=== PATIENT | female | born 1960 | race Caucasian/White ===

== ENCOUNTER → 2016-04-15 | Outpatient (CLI) | payer BC ==
[~2016-04-15] MED LIST: ASPI-232 PO; ATOR-24 PO; CHOL100010 PO; CLOP1TAB54 PO; COEN100C15 PO; LRS10 PO; METO25TA56 PO
[2016-04-15 10:07] LABS: BASO % 0.5 %; BASO ABS # 0.02 K/uL (0-0.2); COMPLETE YES; EOS % 4.5 %; HEMATOCRIT 38.7 % (37-47); LYMPH % 20.2 %; LYMPH ABS # 0.76 K/uL (1.2-3.4); MEAN CELL VOLUME 95.6 fL (80-100); MEAN CORPUSCULAR HEMOGLOBIN 31.4 pg (25-34); MEAN CORPUSCULAR HGB CONC 32.8 g/dl (32-36); MEAN PLATELET VOLUME 9.8 fL (7.4-10.4); MONO % 7.7 %; NEUT % 67.1 %; PLATELET COUNT 172 K/uL (130-400); RED BLOOD COUNT 4.05 M/uL (4.2-5.4); WHITE BLOOD COUNT 3.77 K/uL (4.8-10.8)
[2016-04-15 10:18] LABS: ALT/SGPT 24 U/L (12-78); BLOOD UREA NITROGEN 15 mg/dl (7-18); CALCIUM 9.2 mg/dl (8.5-10.1); CARBON DIOXIDE 30 mmol/L (21-32); CHLORIDE 103 mmol/L (98-107); CHOLESTEROL 132 mg/dl (0-200); CREATININE 0.87 mg/dl (0.60-1.20); GLUCOSE 95 mg/dl (70-99); POTASSIUM 3.9 mmol/L (3.5-5.1); SODIUM 140 mmol/L (136-145); TRIGLYCERIDES 145 mg/dl (0-150); VERY LOW DENSITY LIPOPROT CALC 29 mg/dl
[2016-04-15 10:21] LABS: ALB/GLOB RATIO 1.4 (0.9-2); ALKALINE PHOSPHATASE 86 U/L (45-117); AST/SGOT 14 U/L (15-37); CHOLESTEROL/HDL RATIO 3.1; HDL CHOLESTEROL 42 mg/dl; LDL CHOLESTEROL CALCULATED 61 mg/dl
== END | disposition home or self-care (01) ==
LOC: C.LAB1850 08:58
PROVIDERS: ATTEND Internal Medicine Interventional Cardiology
DX: I25.10 Atherosclerotic heart disease of native coronary artery without angina pectoris (principal); I10 Essential (primary) hypertension; Z98.61 Coronary angioplasty status

== ENCOUNTER → 2017-03-14 | Outpatient (CLI) | payer BC ==
[2017-03-14 14:25] LABS: BASO % 0.4 %; BASO ABS # 0.02 K/uL (0-0.2); EOS % 2.4 %; EOS ABS # 0.11 K/uL (0-0.5); HEMATOCRIT 40.4 % (37-47); IG# 0.02 K/uL (0.00-0.02); LYMPH % 23.3 %; LYMPH ABS # 1.07 K/uL (1.2-3.4); MEAN CELL VOLUME 96.9 fL (80-100); MEAN CORPUSCULAR HEMOGLOBIN 31.2 pg (25-34); MEAN CORPUSCULAR HGB CONC 32.2 g/dl (32-36); MEAN PLATELET VOLUME 10.2 fL (7.4-10.4); MONO % 7.8 %; MONO ABS # 0.36 K/uL (0.11-0.59); NEUT % 65.7 %; NEUT ABS # 3.01 K/uL (1.4-6.5); PLATELET COUNT 165 K/uL (130-400); RED CELL DISTRIBUTION WIDTH CV 13.5 % (11.5-14.5); RED CELL DISTRIBUTION WIDTH SD 47.5 fL (36.4-46.3); WHITE BLOOD COUNT 4.59 K/uL (4.8-10.8)
[2017-03-14 15:29] LABS: ALBUMIN 4.1 gm/dl (3.4-5.0); ALT/SGPT 31 U/L (12-78); BLOOD UREA NITROGEN 17 mg/dl (7-18); CALCIUM 9.9 mg/dl (8.5-10.1); CARBON DIOXIDE 30 mmol/L (21-32); CHOLESTEROL 118 mg/dl (0-200); CREATININE 0.77 mg/dl (0.60-1.20); GLUCOSE 94 mg/dl (70-99); POTASSIUM 4.1 mmol/L (3.5-5.1); SODIUM 140 mmol/L (136-145)
[2017-03-14 15:38] LABS: ALKALINE PHOSPHATASE 75 U/L (45-117); AST/SGOT 18 U/L (15-37); LDL CHOLESTEROL CALCULATED 51 mg/dl; TOTAL PROTEIN 7.5 gm/dl (6.4-8.2)
== END | disposition home or self-care (01) ==
LOC: C.LABBC 11:01
PROVIDERS: ATTEND Nurse Practitioner Family
DX: R07.9 Chest pain, unspecified (principal)

== ENCOUNTER → 2017-04-14 | Outpatient (CLI) | payer BC ==
--- NOTE | 2017-04-14 15:53 | DIAGNOSTIC IMAGING REPORT ---
R HIP UNILATERAL 2 VIEWS CLINICAL HISTORY: M25.551 Right hip [id number] COMPARISON: None. DISCUSSION: There are moderate osteoarthritic changes with marked superior joint space narrowing. There are femoral head osteophytes. There are no acute fractures. IMPRESSION: Moderately advanced osteoarthritic change. No acute fractures Electronically signed by: Tiburcio Renee M.D. 04/14/2017 3:52 PM Dictated Date/Time: 04/14/2017 3:51 PM
== END | disposition home or self-care (01) ==
LOC: C.RADBC 15:36
PROVIDERS: ATTEND Nurse Practitioner Family
DX: M25.551 Pain in right hip (principal)

== ENCOUNTER → 2017-05-03 | Outpatient (CLI) | payer BC ==
--- NOTE | 2017-05-03 10:22 | DIAGNOSTIC IMAGING REPORT ---
LUMBAR SPINE 5 VIEWS HISTORY: LOW BACK PAIN COMPARISON: Lumbar spine 10/09/2015. FINDINGS: There is no fracture. No subluxation. Moderate to severe disc space narrowing at L4-L5 with endplate osteophytes and endplate sclerosis. There is also mild disc space narrowing at L2-L3 and L3-L4 with small endplate osteophytes. Moderate facet osteoarthritis within the lower lumbar spine. The sacrum appears intact. Straightening of the lumbar spine. Moderate right hip osteoarthritis. IMPRESSION: No fracture or subluxation within the lumbar spine. No significant change in the degenerative changes most pronounced at the L4-L5 level. Electronically signed by: Daljit Recio M.D. 05/03/2017 10:20 AM Dictated Date/Time: 05/03/2017 10:18 AM
== END | disposition home or self-care (01) ==
LOC: C.RDSM 09:50
PROVIDERS: ATTEND Internal Medicine
DX: M54.5 Low back pain (principal)

== ENCOUNTER → 2017-05-10 | Outpatient (CLI) | payer BC | END | disposition home or self-care (01) | LOC: C.LABSPEC 16:42 | PROVIDERS: ATTEND Physician Assistant | DX: L29.8 Other pruritus (principal) ==

== ENCOUNTER → 2017-06-15 | Outpatient (CLI) | payer BC | END | disposition home or self-care (01) | LOC: C.PAPS 12:00 | PROVIDERS: ATTEND Physician Assistant | DX: Z01.419 Encounter for gynecological examination (general) (routine) without abnormal findings (principal) ==

== ENCOUNTER → 2017-06-15 | Outpatient (CLI) | payer BC | END | disposition home or self-care (01) | LOC: C.LABSPEC 11:09 | PROVIDERS: ATTEND Physician Assistant | DX: Z01.419 Encounter for gynecological examination (general) (routine) without abnormal findings (principal); L29.8 Other pruritus ==

== ENCOUNTER → 2017-07-06 | Day surgery (SDC) | payer BC ==
[2017-06-27 16:25] VITALS: Ht 165.1 cm; Wt 81.8 kg
[~2017-07-06] VITALS: Ht 165.1 cm; Wt 81.8 kg
[~2017-07-06] MED LIST changes: +CHOL1000 PO; -CHOL100010 PO; +IOPAMIDOL INJ 61% 15 ML VIAL ONE; +LIDOCAINE HCL 1% MPF 5 ML VIAL ONE; -LRS10 PO; -METO25TA56 PO; +POLY335019 PO; +PSYL0.524 PO; +SODIUM CHLORIDE 0.9% INJ 10 ML VIAL ONE; +TPRSR/25 PO
--- NOTE | 2017-07-06 14:24 | History & Physical Bridge - [place] ---
H&P Re-Evaluation Bridge Note: I have examined the patient, reviewed the History & Physical and in the interval since the performance of the History & Physical I have noted the following changes of clinical significance: No changes noted
--- NOTE | 2017-07-06 14:46 | [facility] Post Operative Brief Note ---
Immediate Operative Summary Operative Date July 06, 2017. 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 Lina SEO Harp Maker Surgeon(s) NONE Estimated Blood Loss 0 Findings Consistent with Post-Op Diagnosis Specimens NA Drains None Anesthesia Type Local Complication(s) none Disposition Disposition:
[2017-07-06 14:48] VITALS: PULSE 80; TEMP 36.7
--- NOTE | 2017-07-06 14:48 | Discharge Instructions ---
Discharge Instructions Date of Service July 06, 2017. Visit Reason for Visit: Lumboscaral Spondylolisthesis, Radiculopathy Discharge Discharge Diagnosis / Problem: right leg pain Discharge Goals Goal(s): Decrease discomfort, Improve function Medications Stopped Medications Name(s): see anticoag comment Activity Recommendations Activity Limitations: resume your previous activity Anesthesia . Post Anesthesia Instructions: If you have had General Anesthesia or IV Sedation: * Do not drive today. * Resume driving when surgeon permits. * Do not make important decisions or sign legal documents today. * Call surgeon for: 1. Temperature elevations greater than 101 degrees F. 2. Uncontrollable pain. 3. Excessive bleeding. 4. Persistent nausea and vomiting. 5. Medication intolerance (nausea, vomiting or rash). * For nausea and vomiting use only clear liquids such as: tea, soda, bouillon until nausea subsides, then gradually increase diet as tolerated. * If you have any concerns or questions, call your surgeon's office. If physician is unavailable and it is an emergency, call 911 or go to the nearest emergency room. . Diet Recommendations Recommended Home Diet: resume previous diet Procedures Procedures Performed: LUMBAR EPIDURAL STEROID INJECTION Pending Studies Studies pending at discharge: no Medical Emergencies . Who to Call and When: Medical Emergencies: If at any time you feel your situation is an emergency, please call 911 immediately. . Non-Emergent Contact Non-Emergency issues call your: Specialist . . "Provider Documentation" section prepared by Julio C Eaton. .
[2017-07-06 15:06] VITALS: BP 130/82; O2SAT 97
--- NOTE | 2017-07-06 20:05 | OPERATIVE REPORT ---
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 POSTOPERATIVE DIAGNOSIS: L4-L5 anterior listhesis with a right L4 radiculopathy. PROCEDURE: Right paramedian L4-L5 interlaminar epidural steroid injection under fluoroscopic guidance. INDICATIONS: The patient is a 57-year-old white female who presents today for an epidural steroid injection. She has classic right L4 radicular pain that is emanating from the spine and she has a known anterior listhesis at this level at L4-L5. PHYSICAL EXAMINATION: GENERAL: Pleasant female, seated comfortably, in no apparent distress. MUSCULOSKELETAL: The patient has some tenderness to palpation across the lower lumbar spine into the right sciatic notch. No focal weakness, heightened sensation in the right L4 dermatomal distribution. CONSENT: Verbal and written consent was obtained from the patient. Risks and benefits were reviewed. Risks include, but are not limited to epidural abscess, epidural hematoma, allergic reaction, dural puncture. The patient wishes to proceed. PROCEDURE IN DETAIL: The patient was taken back to the special procedures room of [facility]. She was maintained in a prone position. Backside was cleansed with Betadine x3 and a dry sterile dressing was applied. Fluoroscope was used to identify the L4-L5 intralaminar space. Overlying skin was anesthetized with 3 mL of lidocaine 1% with a 25-gauge 1.5-inch needle. A 22-gauge 3.5-inch Tuohy needle was then directed down towards the intralaminar space. It was advanced under lateral fluoroscopic guidance. Loss of resistance was noted at a depth of just under 6 cm. Isovue-300 contrast 1 mL was injected, which demonstrated epidural uptake pattern. She then underwent injection after negative aspiration of 40 mg of Depo-Medrol and 4 mL of preservative free sodium chloride. Injection was well tolerated. DISPOSITION: 1. The patient was taken out into the discharge recovery area where she will be discharged home once discharge criteria are met. 2. Follow up in the [facility] office in 4 weeks' time. I attest to the content of the Intraoperative Record and any orders documented therein. Any exception s are noted below.
== END | disposition home or self-care (01) ==
LOC: X.SURG 13:53
PROVIDERS: ATTEND Physical Medicine & Rehabilitation
DX: M43.16 Spondylolisthesis, lumbar region (principal); Z79.899 Other long term (current) drug therapy; Z79.82 Long term (current) use of aspirin

== ENCOUNTER 2024-02-01 15:53 | Observation (INO) ==
--- NOTE | 2024-02-01 16:33 | Emergency Department Note ---
Impression & Plan TIA (transient ischemic attack), Leukopenia, Double vision, Dizziness ED Provider Note NAME: OPAL MOYA AGE: 64 SEX: F : 1960 ARRIVES VIA: Walk-In INFORMANT: Patient ED PROVIDER(S): Edmond Lockwood DO CHIEF COMPLAINT: Dizziness, blurry vision/double vision HPI: Patient is a 64-year-old female who presents to the ER for double vision that started this morning around 8 AM. It lasted for a minute. This resolved. Patient had double vision and blurry vision and this has been coming going throughout the day. Currently has none now. Denies any headache or loss of vision. No chest pain or shortness of breath. No belly pain, nausea, vomiting, or diarrhea. No dysuria, urgency, or frequency. No other exacerbating or remitting factors. ADDITIONAL HISTORY OBTAINED: Per HPI Chronic Medical/Social Conditions Affecting Care: Per HPI PAST MEDICAL HISTORY:See Below PAST SURGICAL HISTORY:See Below FAMILY HISTORY:See Below SOCIAL HISTORY:See Below HOME MEDICATIONS:See Below ALLERGIES:See Below VITALS:See Below PHYSICAL EXAMINATION: GENERAL: Sitting up in bed, alert, well appearing, well nourished, no distress, non-toxic EYE EXAM: normal conjunctiva. PERRL and EOM's intact. OROPHARYNX: no exudate, no erythema, lips, buccal mucosa, and tongue normal and mucous membranes are moist NECK: supple, no nuchal rigidity, no adenopathy, non-tender LUNGS: Clear to auscultation. Normal chest wall mechanics HEART: no murmurs, S1 normal and S2 normal ABDOMEN: abdomen soft, non-tender, normo-active bowel sounds, no masses, no rebound or guarding. UPPER EXTREMITIES: upper extremities are grossly normal. LOWER EXTREMITIES: No pitting edema. NEURO EXAM: Normal sensorium, cranial nerves II-XII intact, normal speech, no weakness of arms, no weakness of legs. No drift. Finger to nose intact. Gross sensation intact. MEDICAL DECISION MAKING: Patient is a 64-year-old female who presents to the ER for the above-stated complaint. IV was established and blood work was obtained. Labs show leukopenia 3.9 thousand. No significant anemia. Mild thrombocytopenia at 122. BMP along with LFTs bilirubin and troponin was negative. Lipase was normal. CT angios of the head and neck showed a questionable occlusion. Patient has no focal deficit at this time. NIH is 0. Symptoms tactically started around 8 AM. She is not a candidate for TNK. Did discuss with [facility] and they reviewed the angios of the head and requested angios of the neck. These were reordered and were done. I rediscussed them with [facility] and they recommended admission. Discussed case with Dr. Edwards for further evaluation management treatment. Consults/Care Managements Discussions: Per [facility] Triage Nursing notes reviewed. Limited review of prior medical records performed Vital Signs: reviewed and remarkable for no significant abnormalities Differential diagnosis: Differential Diagnosis includes but is not limited to headache, tension headache, cluster headache, migraine, subarachnoid hemorrhage, meningitis, mass, central venous thrombus, concussion, trauma and epidural/subdural hemorrhage. ER treatment provided: See below Diagnostics interpreted by me include EKG and cardiac monitoring as listed below: -Cardiac Monitoring: An order was placed for continuous cardiac monitoring. The monitor shows a rate of 82 with sinus rhythm. -ECG: Sinus rhythm rate 80 Normal axis No PVCs QTc 429 -Laboratory studies:Interpreted by me as stated above in MDM and shown below. Imaging studies: Xrays: As interpreted by me: Portable AP upright 1 view of the chest shows no focal infiltrate CTs show: CT angios of the head and neck as described above Procedures:none Critical Care: None Past Med/Surg History Problem List (Updated 02/01/24 @ 21:11 by Edmond Lockwood DO) Dizziness (Acute) Double vision (Acute) Leukopenia (Acute) TIA (transient ischemic attack) (Acute) Lumbar degenerative disc disease Obesity Mild sleep apnea Renal cyst (~2012) pt unaware Crohn disease Recurrent UTI Sleep apnea Antiplatelet or antithrombotic long-term use Lumbar back pain with radiculopathy affecting lower extremity Dry eye Hypersomnia Insomnia Organic periodic limb movement disorder Vertigo Endometriosis Chronic constipation Sensorineural hearing loss of both ears Allergic rhinitis Hypertension (Chronic) CAD (coronary artery disease) Dyslipidemia (Chronic) Asthma (Chronic) no longer uses inhaler Hemorrhoids Status post insertion of drug-eluting stent into left anterior descending (LAD) artery [address] Mayers for this / metoprolol GERD (gastroesophageal reflux disease) Medical History Postural lightheadedness Chronic folliculitis Rectal bleeding Osteoarthritis Pulmonary nodules (~2013) Hydradenitis Spinal stenosis Surgical History S/P epidural steroid injection History of total right hip arthroplasty History of mandibular surgery Nausea and vomiting after administration of anesthetic agent H/O unilateral oophorectomy History of surgery History of dilatation and curettage History of laparoscopy History of colonoscopy History of endoscopic sinus surgery History of placement of stent in LAD coronary artery Family History Mother Heart disease Hypertension Renal artery stenosis Brother Diabetes Kidney disease Lymphoma Lung cancer Father Diabetes Prostate cancer Stroke Dementia Unknown Abdominal aortic aneurysm Sister Lymphoma Grandmother (Paternal) Stroke Uncle Aortic aneurysm Other Family history of reaction to anesthesia No family history of adverse response to anesthesia No family history of bleeding disorder Denies family history of Ovarian cancer Myocardial infarction Breast cancer Colorectal cancer Social History Smoking Status: Never smoker Second Hand Exposure: No; Do You Dip or Chew Tobacco: No; Hx Alcohol Use: No Hx Substance Use: No Preferred Language: Chinese Communication Ability: Effective Visual Impairment: Limited Hearing Ability: Normal [employer] Department Chair Required: No Beliefs That Will Affect Care: None marital status: Current Living Situation: Family Current Living Situation Comment: LIVES WITH SON current occupational status: retired How many Children do You have: 2 Feels Safe at Home: Yes Childhood Exposure to Second-Hand Smoke: Yes Diet: regular Diet Comment: Regular caffeine: Yes during the past year weight has: remained stable Dental Care, Regularly: Yes Physical Activity Frequency: 5-6 Times per Week Seatbelt Use: always Sunscreen Use: Yes Assistive Devices: Glasses Allergies Allergies Allergy/AdvReac Type Severity Reaction Status Date / Time cefuroxime Allergy Severe THROAT Verified 01/31/24 13:02 CLOSES adhesive tape Allergy Intermediate Hives Verified 01/31/24 13:02 bacitracin Allergy Intermediate Rash Verified 01/31/24 13:02 [From Neosporin ([id number])] mupirocin Allergy Intermediate Hives Verified 01/31/24 13:02 neomycin Allergy Intermediate Hives Verified 01/31/24 13:02 [From Neosporin ([id number])] polymyxin B Allergy Intermediate Hives Verified 01/31/24 13:02 [From Neosporin ([id number])] Penicillins Allergy Unknown A CHILD Verified 01/31/24 13:02 - UNK ciprofloxacin [From Cipro] AdvReac Intermediate nausea/vomi Verified 01/31/24 13:02 ting/diarrh ea Sulfa (Sulfonamide AdvReac Intermediate nausea/vomi Verified 01/31/24 13:02 Antibiotics) ting/diarrh ea azithromycin AdvReac Unknown contraindicted Verified 01/31/24 13:02 due to heart stent Home Meds Home Medications Medication Instructions Recorded Confirmed aspirin 81 mg tablet,delayed 81 mg PO QAM 01/08/19 02/01/24 release (Adult Aspirin Regimen) cholecalciferol (vitamin D3) 50 50 mcg PO QAM 01/08/19 02/01/24 mcg (2,000 unit) capsule Lactobacillus acidophilus 10 10,000 mmu cells PO QAM 04/19/21 02/01/24 billion cell capsule coQ10 (ubiquinol) 200 mg capsule 1 tab PO HS 03/15/23 02/01/24 conjugated estrogens 0.625 mg/gram 1 applic vaginal DAILY PRN Unknown 07/27/23 02/01/24 vaginal cream (Premarin) d-mannose 500 mg capsule 500 mg PO DAILY 11/01/23 02/01/24 Previous Rx's Medication Instructions Recorded clindamycin phosphate 1 % topical 1 applic topical DAILY PRN SKIN 02/14/23 gel IRRITATION #60 grams metoprolol succinate 25 mg 12.5 mg (1/2 x 25 mg) PO QAM 04/29/23 tablet,extended release 24 hr hypertension #90 tabs atorvastatin 80 mg tablet 80 mg PO HS #90 tabs 11/01/23 hydrocortisone 2.5 % topical cream 1 applic NC DAILY PRN hemorrhoids 12/07/23 with perineal applicator #30 grams (Proctozone-HC) Results & Data (ED) Vital Signs Vital Signs - 24 hr 02/01/24 16:04 02/01/24 16:21 02/01/24 16:32 Temperature 36.6 C Temperature Source Temporal Artery Scan Pulse Rate 90 80 Pulse Rate [Apical] 69 Respiratory Rate 16 16 Respiratory Effort / Characteristics Non-Labored Spontaneous Respiratory Depth Normal Respiratory Pattern Regular Blood Pressure 153/84 H Blood Pressure [Left Arm] 157/88 H Blood Pressure Mean 107 Blood Pressure Mean [Left Arm] 111 Pulse Oximetry 98 96 Oxygen Delivery Method Room Air Room Air Sepsis Recent Fever Within 48 Hours No Sepsis New/Unexplained Change in Mental Status N/A Sepsis Action Taken by Nursing No Action Required 02/01/24 16:32 02/01/24 17:04 02/01/24 19:08 Temperature Temperature Source Pulse Rate Pulse Rate [Apical] 67 66 Respiratory Rate 18 18 Respiratory Effort / Characteristics Respiratory Depth Respiratory Pattern Blood Pressure Blood Pressure [Left Arm] 147/84 H 150/88 H Blood Pressure Mean Blood Pressure Mean [Left Arm] 105 108 Pulse Oximetry 96 96 98 Oxygen Delivery Method Room Air Room Air Sepsis Recent Fever Within 48 Hours Sepsis New/Unexplained Change in Mental Status Sepsis Action Taken by Nursing 02/01/24 20:12 02/01/24 20:48 02/01/24 21:37 Temperature Temperature Source Pulse Rate 77 Pulse Rate [Apical] 79 68 Respiratory Rate 16 15 Respiratory Effort / Characteristics Respiratory Depth Respiratory Pattern Blood Pressure Blood Pressure [Left Arm] 174/89 H 139/86 Blood Pressure Mean Blood Pressure Mean [Left Arm] 117 103 Pulse Oximetry 99 98 Oxygen Delivery Method Sepsis Recent Fever Within 48 Hours Sepsis New/Unexplained Change in Mental Status Sepsis Action Taken by Nursing Laboratory Data 02/01/24 16:29 02/01/24 16:29 Lab Results 02/01/24 Range/Units 16:29 WBC 3.90 L (4.8-10.8) K/ul RBC 4.23 (4.20-5.40) M/uL Hgb 13.2 (12.0-16.0) g/dl Hct 39.9 (37.0-47.0) % MCV 94.3 (80.0-100.0) fL MCH 31.2 (25.0-34.0) pg MCHC 33.1 (32.0-36.0) g/dL RDW Std Deviation 44.9 (36.4-46.3) fL RDW Coeff of Valentina 13.0 (11.5-14.5) % Plt Count 122 L (130-400) K/uL MPV 9.6 (9.4-12.4) fL Immature Gran % (Auto) 0.5 % Neut % (Auto) 69.5 % Lymph % (Auto) 21.0 % [place] % (Auto) 7.2 % Eos % (Auto) 1.3 % Baso % (Auto) 0.5 % Neut # (Auto) 2.71 (1.40-6.50) K/uL Lymph # (Auto) 0.82 L (1.20-3.40) K/uL [place] # (Auto) 0.28 (0.11-0.59) K/uL Eos # (Auto) 0.05 (0.00-0.50) K/uL Baso # (Auto) 0.02 (0.00-0.20) K/uL Immature Gran # (Auto) 0.02 (0.01-0.20) K/uL Sodium 141 (136-145) mmol/L Potassium 3.9 (3.5-5.1) mmol/L Chloride 106 (98-107) mmol/L Carbon Dioxide 28 (21-32) mmol/L Anion Gap 7 (3-11) BUN 14 (6-23) mg/dl Creatinine 0.78 (0.6-1.2) mg/dl Est Cr Clr Drug Dosing 75.7 ml/min eGFR 83.72 BUN/Creatinine Ratio 17.9 (10-20) Glucose 105 H (70-99(Fasting)) mg/dl Calcium 9.9 (8.6-10.3) mg/dl Total Bilirubin 0.9 (0.2-1.0) mg/dl AST 17 (13-39) U/L ALT 16 (7-52) U/L Alkaline Phosphatase 72 (34-104) U/L Troponin I High Sens 3.4 (0-14) pg/ml Total Protein 7.2 (6.0-8.3) gm/dl Albumin 4.7 (3.4-5.0) gm/dl Globulin 2.5 (2.5-4.0) gm/dl Albumin/Globulin Ratio 1.9 (0.9-2) Lipase 25 (11-82) U/L Administered Medications Discontinued Medications Sodium Chloride (Nss) 500 mls @ 999 mls/hr IV .Q31M ONE Stop: 02/01/24 20:58 Last Admin: 02/01/24 21:24 Dose: 999 mls/hr Documented By: WAQAR Ioversol (Optiray 320 125ml) 119 ml IV ONCE ONE Stop: 02/01/24 18:42 Last Admin: 02/01/24 18:42 Dose: 119 ml Documented By: SERGE Ioversol (Optiray 320 125ml) 116 ml IV ONCE ONE Stop: 02/01/24 20:42 Last Admin: 02/01/24 20:41 Dose: 116 ml Documented By: SERGE Imaging Data Radiologist's Impression: Chest X-Ray 02/01/24 16:29 EXAM: Radiograph of the Chest 1 View INDICATION: Chest pain. TECHNIQUE: Frontal view of the chest. COMPARISON: 04/23/2023 and 01/30/2023 FINDINGS: Lungs and pleural spaces: No consolidation or pulmonary edema. No pleural effusion or pneumothorax. Heart: Shape and configuration within normal limits allowing for technique. Mediastinum: Probable small hiatal hernia. Bones/joints: No fracture, erosion or dislocation. Soft tissues: No abnormality noted. No radiopaque foreign body noted. Upper abdomen: No abnormality noted. IMPRESSION: Probable small hiatal hernia. Otherwise negative. ACT 112: Negative or not required by law. Electronically signed by Akila Mcleod 02-01-2024 4:55 PM Head CTA 02/01/24 16:29 EXAM: CT Angiography Head Without and With Intravenous Contrast INDICATION: Blurry and double vision. TECHNIQUE: Axial computed tomographic angiography images of the head without and with intravenous contrast. Sagittal and coronal reformatted images were created and reviewed. This CT exam was performed using one or more of the following dose reduction techniques: automated exposure control, adjustment of the mA and/or kV according to patient size, and/or use of iterative reconstruction technique. MIP reconstructed images were created and reviewed. CONTRAST: 119 ml of Optiray 320 was administered intravenously. COMPARISON: 03/15/2023 FINDINGS: VASCULATURE: Right internal carotid artery: Mild calcific plaque noted. No acute change noted. Intracranial segment is patent with no significant stenosis. No aneurysm. Right anterior cerebral artery: No abnormality noted. No occlusion or significant stenosis. No aneurysm. Right middle cerebral artery: No abnormality noted. No occlusion or significant stenosis. No aneurysm. Right posterior cerebral artery: No abnormality noted. No occlusion or significant stenosis. No aneurysm. Right vertebral artery: No significant abnormality noted. Left internal carotid artery: Short segment occlusion of the cavernous segment with reconstitution. No aneurysm. Left anterior cerebral artery: Hypoplastic A1. No occlusion or significant stenosis. No aneurysm. Left middle cerebral artery: No abnormality noted. No occlusion or significant stenosis. No aneurysm. Left posterior cerebral artery: No abnormality noted. No occlusion or significant stenosis. No aneurysm. Left vertebral artery: No significant abnormality noted. Basilar artery: No abnormality noted. No occlusion or significant stenosis. No aneurysm. HEAD: Brain and extra-axial spaces: Stable left posterior parietal approximately 6 mm meningioma. No surrounding edema. No territorial infarct. No hemorrhage or extra-axial fluid collection. No hydrocephalus. Bones/joints: No acute fracture. Soft tissues: No abnormality noted. Sinuses: No significant abnormality noted. No acute sinusitis. Mastoid air cells: No significant abnormality noted. No mastoid effusion. IMPRESSION: 1. The left internal carotid artery is relatively small with a probable very short focal fluid segment in the cavernous portion with reconstitution via posterior collaterals. 2. 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 Impression new. ACT 112: Negative or not required by law. Electronically signed by Akila Mcleod 02-01-2024 7:02 PM Neck CTA 02/01/24 20:27 CR Exam(s): CTA NECK With Contrast IV Amt: 116 ml optiray 320 EXAM: CT Angiography Neck With Intravenous Contrast CLINICAL HISTORY: Reason for exam: cva. TECHNIQUE: Routine carotid CT angiography protocol was performed with intravenous contrast. NASCET criteria using the distal ICAs for comparison were used for evaluation of stenoses. CTDI is 13.22 mGy and DLP is 379.81 mGy-cm. Automated exposure control was utilized for the study. A dose lowering technique was utilized adhering to the principles of ALARA. MIP reconstructed images were created and reviewed. CONTRAST: Patient received 116 ml optiray 320 of IV contrast COMPARISON: None. FINDINGS: VASCULATURE: Right common carotid artery: Unremarkable. No occlusion or significant stenosis. No dissection. Right carotid bulb: Atheromatous calcified plaques with >50% luminal narrowing (series 302 image 19). Right internal carotid artery: Unremarkable. Extracranial segment is patent with no occlusion or significant stenosis. No dissection. Right external carotid artery: Focal calcified plaque with 50-70% proximal luminal narrowing. No occlusion. Right vertebral artery: Unremarkable. No occlusion or significant stenosis. No dissection. Diffusely diminutive left common, internal carotid and external carotid arteries. Left common carotid artery: No occlusion or significant stenosis. No dissection. Left internal carotid artery: Extracranial segment is patent with no occlusion or significant stenosis. No dissection. Left external carotid artery: No occlusion. Left vertebral artery: Unremarkable. No occlusion or significant stenosis. No dissection. NECK: Bones/joints: No acute fracture. Straightening of normal cervical lordosis. No segmental malalignment. Mild/moderate spondylosis. Soft tissues: Unremarkable. Lung apices: Pleural-parenchymal scarring. . CAROTID STENOSIS REFERENCE USING NASCET CRITERIA: % ICA stenosis = (1 - narrowest ICA diameter/diameter of distal cervical ICA) x 100. Mild - <50% stenosis. Moderate - 50-69% stenosis. Severe - 70-94% stenosis. Near occlusion - 95-99% stenosis. Occluded - 100% stenosis. IMPRESSION: Calcified atherosclerotic plaques of the right carotid bulb/proximal right external carotid artery with 50-70% luminal narrowing as mentioned above. Diffusely diminutive left common, internal carotid and external carotid arteries. Otherwise unremarkable CTA neck exam. . Communications: Call Doctor Stroke Electronically signed by: Micky Suresh MD, DABR 02/01/24 21:31 PM Discharge Plan Visit Data Chief Complaint: Hypertension Stated Complaint: BP HIGH, DBLE VISION, DIZZY, ED Provider: Edmond Lockwood Discharge Problem: TIA (transient ischemic attack), Leukopenia, Double vision, Dizziness Forms Stand Alone Forms: My [facility] [place] [employer] Prescriptions Prescriptions: No Action clindamycin phosphate 1 % gel 1 applic topical DAILY PRN (Reason: SKIN IRRITATION ) Qty: 60 0RF aspirin [Adult Aspirin Regimen] 81 mg tablet,delayed release (DR/EC) 81 mg PO QAM cholecalciferol (vitamin D3) 50 mcg (2,000 unit) capsule 50 mcg PO QAM metoprolol succinate 25 mg tablet extended release 24 hr 12.5 mg PO QAM Qty: 90 3RF Rx Instructions: pt to take blood pressure prior to taking medication, only takes med based on sliding scale 1/2 tablet 105-110 whole tablet 111 or above d-mannose 500 mg capsule 500 mg PO DAILY atorvastatin 80 mg tablet 80 mg PO HS Qty: 90 3RF Premarin 0.625 mg/gram cream 1 applic vaginal DAILY PRN (Reason: Unknown) hydrocortisone [Proctozone-HC] 2.5 % cream with perineal applicator 1 applic NC DAILY PRN (Reason: hemorrhoids) Qty: 30 1RF Lactobacillus acidophilus 10 billion cell Capsule 10,000 mmu cells PO QAM coQ10 (ubiquinol) 200 mg Capsule 1 tab PO HS Referrals Referrals: Marcelina Gao DO [Primary Care Provider] - Discharge Problem: Leukopenia Qualifiers: Leukopenia type: unspecified Qualified Code(s): D72.819 - Decreased white blood cell count, unspecified
[2024-02-01 17:10] LABS: Basophils # (auto) 0.02 K/uL (0.00-0.20); Basophils % (auto) 0.5 %; Eosinophils # (auto) 0.05 K/uL (0.00-0.50); Eosinophils % (auto) 1.3 %; Hematocrit (blood only) 39.9 % (37.0-47.0); Hemoglobin 13.2 g/dl (12.0-16.0); Immature Granulocytes # (auto) 0.02 K/uL (0.01-0.20); Immature Granulocytes % (auto) 0.5 %; Lymphocytes # (auto) 0.82 K/uL (1.20-3.40); Mean Corpuscular Hemoglobin 31.2 pg (25.0-34.0); Mean Corpuscular Hgb Conc 33.1 g/dL (32.0-36.0); Mean Corpuscular Volume 94.3 fL (80.0-100.0); Mean Platelet Volume 9.6 fL (9.4-12.4); Monocytes # (auto) 0.28 K/uL (0.11-0.59); Monocytes % (auto) 7.2 %; Neutrophils # (auto) 2.71 K/uL (1.40-6.50); Neutrophils % (auto) 69.5 %; Platelet Count 122 K/uL (130-400); RDW Standard Deviation 44.9 fL (36.4-46.3); Red Blood Count 4.23 M/uL (4.20-5.40)
[2024-02-01 17:15] LABS: Albumin Globulin Ratio 1.9 (0.9-2); Albumin Level 4.7 gm/dl (3.4-5.0); BUN Creatinine Ratio 17.9 (10-20); Bilirubin,Total 0.9 mg/dl (0.2-1.0); Calcium 9.9 mg/dl (8.6-10.3); Creatinine Clr Calc Pharmacy 75.7 ml/min; Globulin 2.5 gm/dl (2.5-4.0); Potassium 3.9 mmol/L (3.5-5.1); Total Protein 7.2 gm/dl (6.0-8.3)
--- NOTE | 2024-02-01 17:16 | XRay Report ---
EXAM: Radiograph of the Chest 1 View INDICATION: Chest pain. TECHNIQUE: Frontal view of the chest. COMPARISON: 04/23/2023 and 01/30/2023 FINDINGS: Lungs and pleural spaces: No consolidation or pulmonary edema. No pleural effusion or pneumothorax. Heart: Shape and configuration within normal limits allowing for technique. Mediastinum: Probable small hiatal hernia. Bones/joints: No fracture, erosion or dislocation. Soft tissues: No abnormality noted. No radiopaque foreign body noted. Upper abdomen: No abnormality noted. IMPRESSION: Probable small hiatal hernia. Otherwise negative. ACT 112: Negative or not required by law. Electronically signed by Akila Mcleod 02-01-2024 4:55 PM
[2024-02-01 17:20] LABS: Troponin I High Sensitivity 3.4 pg/ml (0-14)
[2024-02-01] MEDS: OPTIRAY 320 125ml IV ONE ×2 (18:42→20:41)
--- NOTE | 2024-02-01 19:03 | CT Scan Report ---
EXAM: CT Angiography Head Without and With Intravenous Contrast INDICATION: Blurry and double vision. TECHNIQUE: Axial computed tomographic angiography images of the head without and with intravenous contrast. Sagittal and coronal reformatted images were created and reviewed. This CT exam was performed using one or more of the following dose reduction techniques: automated exposure control, adjustment of the mA and/or kV according to patient size, and/or use of iterative reconstruction technique. MIP reconstructed images were created and reviewed. CONTRAST: 119 ml of Optiray 320 was administered intravenously. COMPARISON: 03/15/2023 FINDINGS: VASCULATURE: Right internal carotid artery: Mild calcific plaque noted. No acute change noted. Intracranial segment is patent with no significant stenosis. No aneurysm. Right anterior cerebral artery: No abnormality noted. No occlusion or significant stenosis. No aneurysm. Right middle cerebral artery: No abnormality noted. No occlusion or significant stenosis. No aneurysm. Right posterior cerebral artery: No abnormality noted. No occlusion or significant stenosis. No aneurysm. Right vertebral artery: No significant abnormality noted. Left internal carotid artery: Short segment occlusion of the cavernous segment with reconstitution. No aneurysm. Left anterior cerebral artery: Hypoplastic A1. No occlusion or significant stenosis. No aneurysm. Left middle cerebral artery: No abnormality noted. No occlusion or significant stenosis. No aneurysm. Left posterior cerebral artery: No abnormality noted. No occlusion or significant stenosis. No aneurysm. Left vertebral artery: No significant abnormality noted. Basilar artery: No abnormality noted. No occlusion or significant stenosis. No aneurysm. HEAD: Brain and extra-axial spaces: Stable left posterior parietal approximately 6 mm meningioma. No surrounding edema. No territorial infarct. No hemorrhage or extra-axial fluid collection. No hydrocephalus. Bones/joints: No acute fracture. Soft tissues: No abnormality noted. Sinuses: No significant abnormality noted. No acute sinusitis. Mastoid air cells: No significant abnormality noted. No mastoid effusion. IMPRESSION: 1. The left internal carotid artery is relatively small with a probable very short focal fluid segment in the cavernous portion with reconstitution via posterior collaterals. 2. 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 Impression new. ACT 112: Negative or not required by law. Electronically signed by Akila Mcleod 02-01-2024 7:02 PM
[2024-02-01] MEDS: SODIUM CHLORIDE 0.9% 500 ML IV ONE (21:24)
--- NOTE | 2024-02-01 21:32 | CT Scan Report ---
Exam(s): CTA NECK With Contrast IV Amt: 116 ml optiray 320 EXAM: CT Angiography Neck With Intravenous Contrast CLINICAL HISTORY: Reason for exam: cva. TECHNIQUE: Routine carotid CT angiography protocol was performed with intravenous contrast. NASCET criteria using the distal ICAs for comparison were used for evaluation of stenoses. CTDI is 13.22 mGy and DLP is 379.81 mGy-cm. Automated exposure control was utilized for the study. A dose lowering technique was utilized adhering to the principles of ALARA. MIP reconstructed images were created and reviewed. CONTRAST: Patient received 116 ml optiray 320 of IV contrast COMPARISON: None. FINDINGS: VASCULATURE: Right common carotid artery: Unremarkable. No occlusion or significant stenosis. No dissection. Right carotid bulb: Atheromatous calcified plaques with >50% luminal narrowing (series 302 image 19). Right internal carotid artery: Unremarkable. Extracranial segment is patent with no occlusion or significant stenosis. No dissection. Right external carotid artery: Focal calcified plaque with 50-70% proximal luminal narrowing. No occlusion. Right vertebral artery: Unremarkable. No occlusion or significant stenosis. No dissection. Diffusely diminutive left common, internal carotid and external carotid arteries. Left common carotid artery: No occlusion or significant stenosis. No dissection. Left internal carotid artery: Extracranial segment is patent with no occlusion or significant stenosis. No dissection. Left external carotid artery: No occlusion. Left vertebral artery: Unremarkable. No occlusion or significant stenosis. No dissection. NECK: Bones/joints: No acute fracture. Straightening of normal cervical lordosis. No segmental malalignment. Mild/moderate spondylosis. Soft tissues: Unremarkable. Lung apices: Pleural-parenchymal scarring. . CAROTID STENOSIS REFERENCE USING NASCET CRITERIA: % ICA stenosis = (1 - narrowest ICA diameter/diameter of distal cervical ICA) x 100. Mild - <50% stenosis. Moderate - 50-69% stenosis. Severe - 70-94% stenosis. Near occlusion - 95-99% stenosis. Occluded - 100% stenosis. IMPRESSION: Calcified atherosclerotic plaques of the right carotid bulb/proximal right external carotid artery with 50-70% luminal narrowing as mentioned above. Diffusely diminutive left common, internal carotid and external carotid arteries. Otherwise unremarkable CTA neck exam. . Communications: Call Doctor Stroke Electronically signed by: Micky Suresh MD, DABR 02/01/24 21:31 PM
--- NOTE | 2024-02-01 21:42 | History & Physical Report ---
Date of Service February 01, 2024 Assessment & Plan (1) Double vision: (2) Fatigue: (3) Antiplatelet or antithrombotic long-term use: (4) CAD (coronary artery disease): (5) Status post insertion of drug-eluting stent into left anterior descending (LAD) artery: (6) Crohn disease: (7) Somatic dysfunction NEC: Plan Resolved diplopia/fatigue/strokelike symptoms- CT head with stable 6 mm left posterior parietal meningioma CTA head: Left ICA relatively small with a probable very short focal fluid segment in the cavernous portion with reconstitution via posterior collaterals. 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 CTA neck with right carotid bulb and proximal right ECA 50 to 70% stenosis MRI of brain without contrast shows no acute intracranial abnormality. A few punctate subcortical hyperintense foci in the bilateral frontoparietal lobes are likely nonspecific or due to chronic microvascular ischemic disease Tick studies ordered: Lyme test negative, babesiosis and anaplasmosis smear negative with antibodies pending, ehrlichiosis pending Continue aspirin 81 mg daily Symptoms have completely resolved Stroke without thrombolytic order set, consulting speech/PT/OT/neurology Order hemoglobin A1c and fasting lipid panel CAD/hypertension/history of LILIANE to LAD- Most recent stress echo on 12/29/2023 Troponin normal at 3.4, will recheck in the a.m. The patient will be admitted to telemetry for serial cardiac enzymes, serial EKG's, cardiac rhythm monitoring and a 2-D echocardiogram with Dopplers. Thrombocytopenia- Platelets 122, with recent range 129-146 Continue to follow serially, continue aspirin. Any additional antiplatelet agents such as clopidogrel will be up to neurology Multilevel somatic dysfunction- Patient has had a complete connective tissue disease workup which has been nega tive, and will not be repeated History of Present Illness Chief Complaint: The patient presents to the emergency department with complaint of a couple days of generally feeling unwell, with primarily fatigue at symptom, then upon awakening this morning noted her first episode of double vision, that has occurred intermittently throughout the day. She describes double vision as occurring when she has her head looking straight but lifts her eyes up into the left, and might notice a doubling of lines in the corner where the rios come together. She has no focal weakness of arms or legs, she has no other visual acuity anomaly or of the any other position of double vision. She denies any beating of her visual field suggestive of nystagmus Primary Care Provider: Marcelina Gao DO The patient is a 64-year-old female with a past medical history including lumbar degenerative disc disease with intermittent lower extremity radiculopathy, obesity, mild sleep apnea, Crohn's disease, hypersomnia, PLMD, SNHL bilaterally, CAD, hypertension, history of LAD LILIANE, and GERD. The patient presents to the emergency department with symptoms of mild generalized fatigue and unwellness over the past couple days, and then notation of double vision when looking up into the left into extreme field of gaze. She has no focal weakness in the arms or legs, she has no difficulty with speech or swallowing. She denies any recent travels or sick exposures. Allergies Allergy/AdvReac Type Severity Reaction Status Date / Time cefuroxime Allergy Severe THROAT Verified 01/31/24 13:02 CLOSES adhesive tape Allergy Intermediate Hives Verified 01/31/24 13:02 bacitracin Allergy Intermediate Rash Verified 01/31/24 13:02 [From Neosporin ([id number])] mupirocin Allergy Intermediate Hives Verified 01/31/24 13:02 neomycin Allergy Intermediate Hives Verified 01/31/24 13:02 [From Neosporin ([id number])] polymyxin B Allergy Intermediate Hives Verified 01/31/24 13:02 [From Neosporin ([id number])] Penicillins Allergy Unknown A CHILD Verified 01/31/24 13:02 - UNK ciprofloxacin [From Cipro] AdvReac Intermediate nausea/vomi Verified 01/31/24 13:02 ting/diarrh ea Sulfa (Sulfonamide AdvReac Intermediate nausea/vomi Verified 01/31/24 13:02 Antibiotics) ting/diarrh ea azithromycin AdvReac Unknown contraindicted Verified 01/31/24 13:02 due to heart stent Home Medications Medication Instructions Recorded Confirmed Type aspirin 81 mg tablet,delayed 81 mg PO QAM 01/08/19 02/01/24 History release (Adult Aspirin Regimen) cholecalciferol (vitamin D3) 50 50 mcg PO QAM 01/08/19 02/01/24 History mcg (2,000 unit) capsule Lactobacillus acidophilus 10 10,000 mmu cells PO QAM 04/19/21 02/01/24 History billion cell capsule clindamycin phosphate 1 % topical 1 applic topical DAILY PRN SKIN 02/14/23 02/01/24 Rx gel IRRITATION #60 grams coQ10 (ubiquinol) 200 mg capsule 1 tab PO HS 03/15/23 02/01/24 History metoprolol succinate 25 mg 12.5 mg (1/2 x 25 mg) PO QAM 04/29/23 02/01/24 Rx tablet,extended release 24 hr hypertension #90 tabs conjugated estrogens 0.625 mg/gram 1 applic vaginal DAILY PRN Unknown 07/27/23 02/01/24 History vaginal cream (Premarin) atorvastatin 80 mg tablet 80 mg PO HS #90 tabs 11/01/23 02/01/24 Rx d-mannose 500 mg capsule 500 mg PO DAILY 11/01/23 02/01/24 History hydrocortisone 2.5 % topical cream 1 applic MA DAILY PRN hemorrhoids 12/07/23 02/01/24 Rx with perineal applicator #30 grams (Proctozone-HC) Past Med/Surg History Problem List (Updated 02/02/24 @ 02:46 by Won Jain MD) Somatic dysfunction NEC Dizziness (Acute) Double vision (Acute) Leukopenia (Acute) TIA (transient ischemic attack) (Acute) Lumbar degenerative disc disease Obesity Mild sleep apnea Renal cyst (~2012) pt unaware Crohn disease Recurrent UTI Sleep apnea Antiplatelet or antithrombotic long-term use Lumbar back pain with radiculopathy affecting lower extremity Dry eye Hypersomnia Insomnia Organic periodic limb movement disorder Vertigo Endometriosis Chronic constipation Sensorineural hearing loss of both ears Allergic rhinitis Hypertension (Chronic) CAD (coronary artery disease) Dyslipidemia (Chronic) Asthma (Chronic) no longer uses inhaler Hemorrhoids Status post insertion of drug-eluting stent into left anterior descending (LAD) artery [address] Mayers for this / metoprolol GERD (gastroesophageal reflux disease) Medical History Postural lightheadedness Chronic folliculitis Rectal bleeding Osteoarthritis Pulmonary nodules (~2013) Hydradenitis Spinal stenosis Surgical History S/P epidural steroid injection History of total right hip arthroplasty History of mandibular surgery Nausea and vomiting after administration of anesthetic agent H/O unilateral oophorectomy History of surgery History of dilatation and curettage History of laparoscopy History of colonoscopy History of endoscopic sinus surgery History of placement of stent in LAD coronary artery Family History Mother Heart disease Hypertension Renal artery stenosis Brother Diabetes Kidney disease Lymphoma Lung cancer Father Diabetes Prostate cancer Stroke Dementia Unknown Abdominal aortic aneurysm Sister Lymphoma Grandmother (Paternal) Stroke Uncle Aortic aneurysm Other Family history of reaction to anesthesia No family history of adverse response to anesthesia No family history of bleeding disorder Denies family history of Ovarian cancer Myocardial infarction Breast cancer Colorectal cancer Social History Smoking Status: Never smoker Second Hand Exposure: No; Do You Dip or Chew Tobacco: No; Hx Alcohol Use: No Hx Substance Use: No Preferred Language: Syrian Communication Ability: Effective Visual Impairment: Limited Hearing Ability: Normal Edi Architect Required: No Beliefs That Will Affect Care: None marital status: Current Living Situation: Family Current Living Situation Comment: , lives with son current occupational status: retired How many Children do You have: 2 Feels Safe at Home: Yes Childhood Exposure to Second-Hand Smoke: Yes Diet: regular Diet Comment: Regular caffeine: Yes during the past year weight has: remained stable Dental Care, Regularly: Yes Physical Activity Frequency: 5-6 Times per Week Seatbelt Use: always Sunscreen Use: Yes Assistive Devices: None Review of Systems Review of Systems: The patient denies chest pain, palpitations, shortness of breath, dyspnea on exertion, cough, lower extremity swelling, sore throat, fevers, chills, sweats, nausea, vomiting, diarrhea , constipation, abdominal pain, pelvic pain, blood in urine or stool, dysuria, urinary frequency or urgency, lightheadedness, dizziness, headache, memory loss, loss of consciousness, rash, abnormal bruising or bleeding, imbalance, focal or generalized weakness, numbness or tingling in arms or legs, generalized arthralgias or myalgias, back or neck pain, or night sweats. The review of systems is otherwise negative other than for that already noted above, and at least 10 systems have been reviewed. Physical Exam Physical Exam: The patient is awake, alert and oriented 3, well developed and well nourished, normocephalic and atraumatic, lying in bed and in no acute distress. HEENT--PERRL, EOMI, mucous membranes and oropharynx mildly dry. No Jayden Jana pupil Ophthalmoscopic exam--normal Neck--supple. No JVD. No bruits. Thyroid normal, trachea midline, no adenopathy. Heart--normal S1 and S2. No murmurs, rubs or gallops. Lungs--clear bilaterally, no respiratory distress, no accessory muscle use. Abdomen--normal bowel sounds and soft. Nontender. Nondistended, no hernias or masses, no organomegaly. Extremities--no cyanosis or clubbing. No edema. There are good distal pulses b/l. Dermatologic--normal skin turgor, normal color, no abnormal lymph nodes, no rash. Neurologic--cranial nerves II through XII grossly intact. Unable to elicit diplopia, visual change, or nystagmus in reported area of potential double vision Rheumatologic--normal range of motion. Psychiatric--normal affect. Results & Data Results & Data Vital Signs (Past 12 Hours) Vital Signs Temp Pulse Pulse Resp BP BP Pulse Ox 02/01/24 21:37 68 15 139/86 98 02/01/24 20:48 77 02/01/24 20:12 79 16 174/89 H 99 02/01/24 19:08 66 18 150/88 H 98 02/01/24 17:04 67 18 147/84 H 96 02/01/24 16:32 96 02/01/24 16:32 69 16 157/88 H 96 02/01/24 16:21 80 02/01/24 16:04 36.6 C 90 16 153/84 H 98 O2 Del Method 02/01/24 21:37 02/01/24 20:48 02/01/24 20:12 02/01/24 19:08 Room Air 02/01/24 17:04 02/01/24 16:32 Room Air 02/01/24 16:32 Room Air 02/01/24 16:21 02/01/24 16:04 Room Air Laboratory Results Laboratory Results WBC 3.90 K/ul (4.8-10.8) L 02/01/24 16:29 RBC 4.23 M/uL (4.20-5.40) 02/01/24 16: Hgb 13.2 g/dl (12.0-16.0) 02/01/24 16: Hct 39.9 % (37.0-47.0) 02/01/24 16: MCV 94.3 fL (80.0-100.0) 02/01/24 16: MCH 31.2 pg (25.0-34.0) 02/01/24 16: MCHC 33.1 g/dL (32.0-36.0) 02/01/24 16: RDW Std Deviation 44.9 fL (36.4-46.3) 02/01/24 16: RDW Coeff of Valentina 13.0 % (11.5-14.5) 02/01/24 16: Plt Count 122 K/uL (130-400) L 02/01/24 16: MPV 9.6 fL (9.4-12.4) 02/01/24 16: Immature Gran % (Auto) 0.5 % 02/01/24 16: Neut % (Auto) 69.5 % 02/01/24 16: Lymph % (Auto) 21.0 % 02/01/24 16: [place] % (Auto) 7.2 % 02/01/24 16: Eos % (Auto) 1.3 % 02/01/24 16: Baso % (Auto) 0.5 % 02/01/24 16: Neut # (Auto) 2.71 K/uL (1.40-6.50) 02/01/24 16: Lymph # (Auto) 0.82 K/uL (1.20-3.40) L 02/01/24 16: [place] # (Auto) 0.28 K/uL (0.11-0.59) 02/01/24 16: Eos # (Auto) 0.05 K/uL (0.00-0.50) 02/01/24 16: Baso # (Auto) 0.02 K/uL (0.00-0.20) 02/01/24 16: Immature Gran # (Auto) 0.02 K/uL (0.01-0.20) 02/01/24 16: Sodium 141 mmol/L (136-145) 02/01/24 16:29 Potassium 3.9 mmol/L (3.5-5.1) 02/01/24 16:29 Chloride 106 mmol/L (98-107) 02/01/24 16:29 Carbon Dioxide 28 mmol/L (21-32) 02/01/24 16:29 Anion Gap 7 (3-11) 02/01/24 16:29 BUN 14 mg/dl (6-23) 02/01/24 16:29 Creatinine 0.78 mg/dl (0.6-1.2) 02/01/24 16:29 Est Cr Clr Drug Dosing 75.7 ml/min 02/01/24 16:29 eGFR 83.72 02/01/24 16:29 BUN/Creatinine Ratio 17.9 (10-20) 02/01/24 16:29 Glucose 105 mg/dl (70-99(Fasting)) H 02/01/24 16:29 Calcium 9.9 mg/dl (8.6-10.3) 02/01/24 16:29 Total Bilirubin 0.9 mg/dl (0.2-1.0) 02/01/24 16:29 AST 17 U/L (13-39) 02/01/24 16:29 ALT 16 U/L (7-52) 02/01/24 16:29 Alkaline Phosphatase 72 U/L (34-104) 02/01/24 16:29 Troponin I High Sens 3.4 pg/ml (0-14) 02/01/24 16:29 Total Protein 7.2 gm/dl (6.0-8.3) 02/01/24 16:29 Albumin 4.7 gm/dl (3.4-5.0) 02/01/24 16:29 Globulin 2.5 gm/dl (2.5-4.0) 02/01/24 16:29 Albumin/Globulin Ratio 1.9 (0.9-2) 02/01/24 16:29 Lipase 25 U/L (11-82) 02/01/24 16:29 Anaplasma Smear See Comment 02/01/24 16:29 Babesia Smear See Comment 02/01/24 16:29 Lyme Disease Screen Negative (Negative) 02/01/24 16:29 Impressions Chest X-Ray 02/01/24 16:29 EXAM: Radiograph of the Chest 1 View INDICATION: Chest pain. TECHNIQUE: Frontal view of the chest. COMPARISON: 04/23/2023 and 01/30/2023 FINDINGS: Lungs and pleural spaces: No consolidation or pulmonary edema. No pleural effusion or pneumothorax. Heart: Shape and configuration within normal limits allowing for technique. Mediastinum: Probable small hiatal hernia. Bones/joints: No fracture, erosion or dislocation. Soft tissues: No abnormality noted. No radiopaque foreign body noted. Upper abdomen: No abnormality noted. IMPRESSION: Probable small hiatal hernia. Otherwise negative. ACT 112: Negative or not required by law. Electronically signed by Akila Mcleod 02-01-2024 4:55 PM Head CTA 02/01/24 16:29 EXAM: CT Angiography Head Without and With Intravenous Contrast INDICATION: Blurry and double vision. TECHNIQUE: Axial computed tomographic angiography images of the head without and with intravenous contrast. Sagittal and coronal reformatted images were created and reviewed. This CT exam was performed using one or more of the following dose reduction techniques: automated exposure control, adjustment of the mA and/or kV according to patient size, and/or use of iterative reconstruction technique. MIP reconstructed images were created and reviewed. CONTRAST: 119 ml of Optiray 320 was administered intravenously. COMPARISON: 03/15/2023 FINDINGS: VASCULATURE: Right internal carotid artery: Mild calcific plaque noted. No acute change noted. Intracranial segment is patent with no significant stenosis. No aneurysm. Right anterior cerebral artery: No abnormality noted. No occlusion or significant stenosis. No aneurysm. Right middle cerebral artery: No abnormality noted. No occlusion or significant stenosis. No aneurysm. Right posterior cerebral artery: No abnormality noted. No occlusion or significant stenosis. No aneurysm. Right vertebral artery: No significant abnormality noted. Left internal carotid artery: Short segment occlusion of the cavernous segment with reconstitution. No aneurysm. Left anterior cerebral artery: Hypoplastic A1. No occlusion or significant stenosis. No aneurysm. Left middle cerebral artery: No abnormality noted. No occlusion or significant stenosis. No aneurysm. Left posterior cerebral artery: No abnormality noted. No occlusion or significant stenosis. No aneurysm. Left vertebral artery: No significant abnormality noted. Basilar artery: No abnormality noted. No occlusion or significant stenosis. No aneurysm. HEAD: Brain and extra-axial spaces: Stable left posterior parietal approximately 6 mm meningioma. No surrounding edema. No territorial infarct. No hemorrhage or extra-axial fluid collection. No hydrocephalus. Bones/joints: No acute fracture. Soft tissues: No abnormality noted. Sinuses: No significant abnormality noted. No acute sinusitis. Mastoid air cells: No significant abnormality noted. No mastoid effusion. IMPRESSION: 1. The left internal carotid artery is relatively small with a probable very short focal fluid segment in the cavernous portion with reconstitution via posterior collaterals. 2. 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 Impression new. ACT 112: Negative or not required by law. Electronically signed by Akila Mcleod 02-01-2024 7:02 PM Neck CTA 02/01/24 20:27 CR Exam(s): CTA NECK With Contrast IV Amt: 116 ml optiray 320 EXAM: CT Angiography Neck With Intravenous Contrast CLINICAL HISTORY: Reason for exam: cva. TECHNIQUE: Routine carotid CT angiography protocol was performed with intravenous contrast. NASCET criteria using the distal ICAs for comparison were used for evaluation of stenoses. CTDI is 13.22 mGy and DLP is 379.81 mGy-cm. Automated exposure control was utilized for the study. A dose lowering technique was utilized adhering to the principles of ALARA. MIP reconstructed images were created and reviewed. CONTRAST: Patient received 116 ml optiray 320 of IV contrast COMPARISON: None. FINDINGS: VASCULATURE: Right common carotid artery: Unremarkable. No occlusion or significant stenosis. No dissection. Right carotid bulb: Atheromatous calcified plaques with >50% luminal narrowing (series 302 image 19). Right internal carotid artery: Unremarkable. Extracranial segment is patent with no occlusion or significant stenosis. No dissection. Right external carotid artery: Focal calcified plaque with 50-70% proximal luminal narrowing. No occlusion. Right vertebral artery: Unremarkable. No occlusion or significant stenosis. No dissection. Diffusely diminutive left common, internal carotid and external carotid arteries. Left common carotid artery: No occlusion or significant stenosis. No dissection. Left internal carotid artery: Extracranial segment is patent with no occlusion or significant stenosis. No dissection. Left external carotid artery: No occlusion. Left vertebral artery: Unremarkable. No occlusion or significant stenosis. No dissection. NECK: Bones/joints: No acute fracture. Straightening of normal cervical lordosis. No segmental malalignment. Mild/moderate spondylosis. Soft tissues: Unremarkable. Lung apices: Pleural-parenchymal scarring. . CAROTID STENOSIS REFERENCE USING NASCET CRITERIA: % ICA stenosis = (1 - narrowest ICA diameter/diameter of distal cervical ICA) x 100. Mild - <50% stenosis. Moderate - 50-69% stenosis. Severe - 70-94% stenosis. Near occlusion - 95-99% stenosis. Occluded - 100% stenosis. IMPRESSION: Calcified atherosclerotic plaques of the right carotid bulb/proximal right external carotid artery with 50-70% luminal narrowing as mentioned above. Diffusely diminutive left common, internal carotid and external carotid arteries. Otherwise unremarkable CTA neck exam. . Communications: Call Doctor Stroke Electronically signed by: Micky Suresh MD, DABR 02/01/24 21:31 PM Brain MRI 02/01/24 21:40 EXAM: MR brain wo con CLINICAL HISTORY: FATIGUE. DIZZINESS. DOUBLE VISION WHEN LOOKING TO THE LEFT. FELT OFF ALL DAY. SYMPTOMS RESOLVED NOW. TECHNIQUE: MRI of the brain was performed without contrast with multiplanar sequences obtained. COMPARISON: Comparison is made with prior imaging studies dated 03/15/2023 CT. FINDINGS: Brain Parenchyma: No evidence of acute infarction or hemorrhage. Normal jones-white matter differentiation. No mass lesions or focal cortical abnormalities were identified. Few punctate subcortical hyperintense T2/FLAIR foci are identified in the frontoparietal lobes bilaterally likely nonspecific or due to chronic microvascular ischemic changes Ventricles and Sulci: Normal size and configuration of the lateral ventricles, third ventricle, and fourth ventricle. No evidence of hydrocephalus or ventriculomegaly. Sylvian fissures, sulci, and cisterns are within normal limits. Posterior Fossa: Cerebellum and brainstem appear normal without evidence of mass lesions or signal abnormalities. Cranial Nerves: Normal course and appearance of cranial nerves identified. Vessels: No evidence of vascular malformations or aneurysms. Intracranial arteries and veins appear normal without evidence of stenosis or occlusion. Orbits and Skull Base: Orbits and skull base structures are normal without evidence of abnormalities. Nasal septum is mildly deviated towards the right side. Minimal fluid is identified in the left mastoid air cells. IMPRESSION: 1. No acute intracranial abnormality was identified. 2. Few punctate subcortical T2/FLAIR hyperintense foci in bilateral frontoparietal lobes are likely nonspecific or due to chronic microvascular ischemic changes. 3. No significant interval change. Electronically signed by Joleen Bender 02-02-2024 12:46 AM Code Status & VTE Plan Code Status Full code VTE Prophylaxis Plan VTE Prophylaxis will be ordered: Yes PG Care Time/CCT Total # of Minutes Spent Total Time Spent with Patient: Total time spent is greater than 50% in coordination of care (as documented) at patient's floor/unit and/or counseling patient: Coding Level of Care Code 27810 INT INP/OBS CARE 3/75MIN Diagnoses Double vision H53.2 Fatigue R53.83 Antiplatelet or antithrombotic long-term use Z79.02 CAD (coronary artery disease) I25.10 Status post insertion of drug-eluting stent into left anterior descending (LAD) artery Z95.5 Crohn disease K50.90 Somatic dysfunction NEC M99.09
[2024-02-01] MEDS ORDERED: ACETAMINOPHEN 325 MG TAB PO PRN (22:44)
[2024-02-01] MEDS ORDERED: PHARMACIST DISCHARGE MED REC CONSULT PRN (22:44)
--- NOTE | 2024-02-02 00:47 | Magnetic Resonance Report ---
EXAM: MR brain wo con CLINICAL HISTORY: FATIGUE. DIZZINESS. DOUBLE VISION WHEN LOOKING TO THE LEFT. FELT OFF ALL DAY. SYMPTOMS RESOLVED NOW. TECHNIQUE: MRI of the brain was performed without contrast with multiplanar sequences obtained. COMPARISON: Comparison is made with prior imaging studies dated 03/15/2023 CT. FINDINGS: Brain Parenchyma: No evidence of acute infarction or hemorrhage. Normal jones-white matter differentiation. No mass lesions or focal cortical abnormalities were identified. Few punctate subcortical hyperintense T2/FLAIR foci are identified in the frontoparietal lobes bilaterally likely nonspecific or due to chronic microvascular ischemic changes Ventricles and Sulci: Normal size and configuration of the lateral ventricles, third ventricle, and fourth ventricle. No evidence of hydrocephalus or ventriculomegaly. Sylvian fissures, sulci, and cisterns are within normal limits. Posterior Fossa: Cerebellum and brainstem appear normal without evidence of mass lesions or signal abnormalities. Cranial Nerves: Normal course and appearance of cranial nerves identified. Vessels: No evidence of vascular malformations or aneurysms. Intracranial arteries and veins appear normal without evidence of stenosis or occlusion. Orbits and Skull Base: Orbits and skull base structures are normal without evidence of abnormalities. Nasal septum is mildly deviated towards the right side. Minimal fluid is identified in the left mastoid air cells. IMPRESSION: 1. No acute intracranial abnormality was identified. 2. Few punctate subcortical T2/FLAIR hyperintense foci in bilateral frontoparietal lobes are likely nonspecific or due to chronic microvascular ischemic changes. 3. No significant interval change. Electronically signed by Joleen Bender 02-02-2024 12:46 AM
[2024-02-02 05:51] LABS: Basophils # (auto) 0.02 K/uL (0.00-0.20); Basophils % (auto) 0.6 %; Eosinophils # (auto) 0.06 K/uL (0.00-0.50); Eosinophils % (auto) 1.7 %; Hematocrit (blood only) 38.1 % (37.0-47.0); Hemoglobin 12.5 g/dl (12.0-16.0); Immature Granulocytes # (auto) 0.01 K/uL (0.01-0.20); Immature Granulocytes % (auto) 0.3 %; Lymphocytes # (auto) 0.86 K/uL (1.20-3.40); Lymphocytes % (auto) 24.5 %; Mean Corpuscular Hemoglobin 31.1 pg (25.0-34.0); Mean Corpuscular Hgb Conc 32.8 g/dL (32.0-36.0); Mean Corpuscular Volume 94.8 fL (80.0-100.0); Mean Platelet Volume 9.2 fL (9.4-12.4); Monocytes # (auto) 0.32 K/uL (0.11-0.59); Monocytes % (auto) 9.1 %; Neutrophils # (auto) 2.24 K/uL (1.40-6.50); Neutrophils % (auto) 63.8 %; Platelet Count 106 K/uL (130-400); RDW Coefficient of Variation 13.1 % (11.5-14.5); RDW Standard Deviation 45.1 fL (36.4-46.3); Red Blood Count 4.02 M/uL (4.20-5.40); White Blood Count 3.51 K/ul (4.8-10.8)
[2024-02-02 06:06] LABS: Albumin Level 4.3 gm/dl (3.4-5.0); BUN Creatinine Ratio 15.7 (10-20); Chol HDL Ratio 3.1 (0-5); Creatinine Clr Calc Pharmacy 85.6 ml/min; Magnesium 2.2 mg/dl (1.7-2.4); Phosphorus 3.7 mg/dl (2.5-4.9); Potassium 3.7 mmol/L (3.5-5.1)
[2024-02-02 06:12] LABS: Troponin I High Sensitivity 3.5 pg/ml (0-14)
[2024-02-02 07:04] VITALS: RESP 19
[2024-02-02 07:38] LABS: Estimated Average Glucose 108 mg/dl; Hemoglobin A1C 5.4 % (4.5-5.6)
[2024-02-02] MEDS: CHOLECALCIFEROL 25 MCG (1000 UNITS) TAB PO SCH (08:40)
[2024-02-02] MEDS: ASPIRIN 81 MG ECTAB PO SCH (08:40)
[2024-02-02] MEDS: METOPROLOL SUCC 25MG EXT REL TAB PO SCH (08:40)
--- NOTE | 2024-02-02 08:47 | Electrocardiogram Report ---
Test Reason : Blood Pressure : */* mmHG Vent. Rate : 80 BPM Atrial Rate : 80 BPM P-R Int : 146 ms QRS Dur : 78 ms QT Int : 372 ms P-R-T Axes : 71 3 37 degrees QTcB Int : 429 ms Normal sinus rhythm Diffuse Minor Nonspecific ST abnormality Abnormal ECG When compared with ECG of 17-Jan-2024 09:43, Nonspecific ST abnormality now present Confirmed by Giovany العلي ([id number]) on 02/02/2024 8:47:13 AM Referred By: REFERRED SELF Confirmed By: Giovany العلي
[2024-02-02] MEDS ORDERED: BILLION CELL PO SCH (09:00)
[2024-02-02] MEDS ORDERED: LACTOBACILLUS ACIDOPHILUS PO SCH (09:00)
--- NOTE | 2024-02-02 09:39 | XCELERA ---
[id number]
[2024-02-02 10:55] VITALS: PULSE 63; TEMP 98.2; O2SAT 97
[2024-02-02] MEDS ORDERED: STROKE PATIENT DISCHARGE STA (10:58)
--- NOTE | 2024-02-02 11:01 | Discharge Summary ---
Discharge Summary Date of Service February 02, 2024 Principal Dx & Hospital Course #1 = Principal Diagnosis (1) Double vision: Resolved. No evidence of acute CVA. Vascular studies revealed noncritical disease. She is already taking aspirin 81 mg daily and statin therapy (2) Fatigue: Resolved. Possibly due to transient hypotension. (3) Antiplatelet or antithrombotic long-term use: She takes aspirin 81 mg daily (4) CAD (coronary artery disease): Stable. Continue current medical management (5) Status post insertion of drug-eluting stent into left anterior descending (LAD) artery: In the past. Stable. Continue current medical management (6) Crohn disease: Stable. Continue current medical management (7) Somatic dysfunction NEC: Stable. Continue current medical management Plan Home today, February 01 Admission HPI Per Admitting Provider The patient is a 64-year-old female with a past medical history including lumbar degenerative disc disease with intermittent lower extremity radiculopathy, obesity, mild sleep apnea, Crohn's disease, hypersomnia, PLMD, SNHL bilaterally, CAD, hypertension, history of LAD LILIANE, and GERD. The patient presents to the emergency department with symptoms of mild generalized fatigue and unwellness over the past couple days, and then notation of double vision when looking up into the left into extreme field of gaze. She has no focal weakness in the arms or legs, she has no difficulty with speech or swallowing. She denies any recent travels or sick exposures. Discharge Exam General-alert and oriented x3, no fever, no chills HEENT-head atraumatic and normocephalic, pupils equal and reactive to light, extraocular muscles intact Neck-no lymphadenopathy or thyromegaly, trachea midline Chest-clear to auscultation. No rales, wheezing or rhonchi Cardiac-regular rate and rhythm, normal S1 and S2 Abdomen-normal bowel sounds, no hepatosplenomegaly Extremities-no cyanosis, clubbing, or edema Neuro-cranial nerves II through XII intact, motor and sensory function within normal limits, strength symmetrical, no focal deficits Psych-normal affect, normal mood Discharge Plan Discharge Items Patient Disposition: Home - Self-Care Reason For Visit: DIPLOPIA, STROKE-LIKE SYMPTOMS Discharge Diagnosis: Strokelike symptoms Activity: Resume your previous activity Non-emergency contact: Primary Care Provider Call non-emergency contact if: your symptoms worsen Follow-up/Referrals: Marcelina Gao, DO [Primary Care Provider] - Diet: Regular and Heart Healthy Addtl Attending Provider Instructions: All medications remain the same. Follow-up with primary care provider soon as possible Pending Studies at Discharge: No Stand-Alone Forms: [facility], Smoking Cessation Medications and DC Order Prescriptions: Continued clindamycin phosphate 1 % gel 1 applic topical DAILY PRN (Reason: SKIN IRRITATION ) Qty: 60 0RF aspirin [Adult Aspirin Regimen] 81 mg tablet,delayed release (DR/EC) 81 mg PO QAM cholecalciferol (vitamin D3) 50 mcg (2,000 unit) capsule 50 mcg PO QAM metoprolol succinate 25 mg tablet extended release 24 hr 12.5 mg PO QAM Qty: 90 3RF Rx Instructions: pt to take blood pressure prior to taking medication, only takes med based on sliding scale 1/2 tablet 105-110 whole tablet 111 or above d-mannose 500 mg capsule 500 mg PO DAILY atorvastatin 80 mg tablet 80 mg PO HS Qty: 90 3RF Premarin 0.625 mg/gram cream 1 applic vaginal DAILY PRN (Reason: Unknown) hydrocortisone [Proctozone-HC] 2.5 % cream with perineal applicator 1 applic MN DAILY PRN (Reason: hemorrhoids) Qty: 30 1RF Lactobacillus acidophilus 10 billion cell Capsule 10,000 mmu cells PO QAM coQ10 (ubiquinol) 200 mg Capsule 1 tab PO HS Discharge Orders: Discharge Order (Routine); Ordered 02/02/24 Ordered By: Inderjit Thompson Admission Data Admit Date/Time: 02/01/24 21:42 Attending Provider: Inderjit Thompson Admit Provider: Won Jain Primary Care Provider: Marcelina Gao Other Providers: Won Jain Hospital Stay Data Consultations 02/01/24 20:36 ED Decision to Admit Stat Diagnostic Imagining Performed 02/01/24 16:29 CT angio head wo/w Stat 02/01/24 20:27 CT angio neck with con Stat 02/01/24 21:40 MR brain wo con Stat Pending Results Patient Have Any Pending Studies at Discharge: No Discharge Instructions Given to Patient (Per Discharging Provider) All medications remain the same. Follow-up with primary care provider soon as possible Total Time Total Time Spent Total Time Spent (In Minutes): 50-minutes Coding Level of Care Code 68715 INP/OBS DISCH >30 MIN Diagnoses Double vision H53.2 Fatigue R53.83 Antiplatelet or antithrombotic long-term use Z79.02 CAD (coronary artery disease) I25.10 Status post insertion of drug-eluting stent into left anterior descending (LAD) artery Z95.5 Crohn disease K50.90 Somatic dysfunction NEC M99.09
[2024-02-02 11:07] VITALS: BP 110/73
[2024-02-02] MEDS ORDERED: NON-FORMULARY MEDICATION (Coq10 (Ubiquinol) 200 mg Capsule) PO SCH (21:00)
[2024-02-02] MEDS ORDERED: ATORVASTATIN 40 MG TAB PO SCH (21:00)
[2024-02-06 23:23] LABS: Babesia microti DNA Not Detected (Not Detected)
== END 2024-02-02 12:00 | disposition home or self-care (01) ==
LOC: ED 15:53 → 2S 15:53 → SUATTDRO 21:42 → 2S 22:30